=== PATIENT | male | born 1950 | race Two or more races ===

== ENCOUNTER 2019-11-28 21:28 | Emergency (ER) | payer MEDICARE ==
[~2019-11-28] VITALS: Ht 154.9 cm; Wt 46.3 kg
[2019-11-28 21:55] VITALS: BP 137/69
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
[2019-11-28] MEDS ORDERED: ACETAMINOPHEN 325 MG TABLET PO ONE (22:00)
--- NOTE | 2019-11-28 22:05 | NUR ---
PT RETURNED FROM RADIOLOGY VIA [facility]
[2019-11-28] MEDS ORDERED: ACETAMINOPHEN 325 MG TABLET ONE (22:26)
== END 2019-11-28 22:28 | disposition home or self-care (01) ==
LOC: ER 21:35
DX: S39.012A Strain of muscle, fascia and tendon of lower back, initial encounter (principal); S20.212A Contusion of left front wall of thorax, initial encounter; E03.9 Hypothyroidism, unspecified; V49.49XA Driver injured in collision with other motor vehicles in traffic accident, initial encounter; Y93.89 Activity, other specified; Y92.413 State road as the place of occurrence of the external cause; Y99.8 Other external cause status
CPT/HCPCS: 71100-TC